=== PATIENT | male | born 1955 ===

== ENCOUNTER → 2018-04-19 | Outpatient (CLI) | payer OTHER ==
[~2018-04-19] VITALS: Ht 170.2 cm; Wt 77.1 kg
[~2018-04-19] MED LIST: ASPIR 8181 M1 PO; LIPITOR 20 MG T20 M1 PO
--- NOTE | ~2018-04-19 | PATH ---
[facility] [address] [place] [address] PATHOLOGY RPT PROCEDURE Name: REBEKAHMELANIE Room #: REG IVORY Soto.#: [id number] Admission: 04/19/18 Date of : 51 Discharge: Report #: [id number] Path Case #: [id number] [facility] Accession Number: [id number] . 01 Material submitted: . GASTRITIS R/O H PYLORI, BIOPSY . 01 Clinician provided ICD-10: n . 01 Clinical history: . Pre-OP DX: Non-cardiac chest pain Post-OP DX: Esophagitis, small hiatal hernia, gastritis . 02 Diagnosis: Gastric mucosa, gastritis, R/O H. pylori, endoscopic biopsy: - Helicobacter pylori induced moderate active gastritis associated with intestinal metaplasia. - Negative for atrophy or dysplasia. - Properly controlled Helicobacter pylori immunohistochemical stain performed showing moderate number of organisms. (IUV:stacia; 04/20/2018) QMS/04/20/2018 . 02 Electronically signed: . Keya Mendoza MD, Pathologist NPI- [id number] . 01 Gross description: . Received in formalin labeled "Rebekah, Melanie, gastritis, rule out H. pylori," are multiple segments of galdamez soft tissue measuring 1.0 x 0.5 x 0.1 cm in aggregate dimensions. The specimen is filtered and entirely submitted in cassette A1. (TSD; 04/19/2018) TOB/TOB . 02 Microscopic: . . . 02 Pathologist provided ICD-10: K29.70, B96.81 . 02 CPT . 029591, [id number] Specimen Comment: A courtesy copy of this report has been sent to Specimen Comment: [phone], . Specimen Comment: Report sent to and [address] [address] PATHOLOGY RPT PROCEDURE Name: CLAUDIA DALEYIS [place] [facility] [id number] Admission: 04/19/18 Date of : 51 Discharge: Report #: [id number] Path Case #: [id number] Performed at: 01 [facility] [address] [facility] [address], [place] [id number] MD Alex Ayala MD Phone: [phone] Performed at: [address], [place] [id number] MD Keya Mendoza MD Phone: [phone]
--- NOTE | ~2018-04-19 | P ---
[facility] [place] [address] PROCEDURE REPORT Name: MELANIE DALEY Room #: REG [facility]#: [id number] Admission: 04/19/18 Attend Phys: Jose Ruiz MD Discharge: Date of : 51 Report #: [id number] THIS REPORT FOR: //name// CC: FAM unknown Jose Antonio MD BRIEF HISTORY: The patient is a 63-year-old male who recently had a brief stay at [facility] due to atypical chest pain. Cardiovascular evaluation was negative per patient report. He is advised to seek GI evaluation. PREOPERATIVE DIAGNOSIS: Atypical chest pain. POSTOPERATIVE DIAGNOSES: 1. Grade A erosive esophagitis. 2. Small hiatus hernia, intermittently seen. 3. Erythematous gastritis. MEDICATIONS: Deep sedation with propofol per anesthesia. SPECIMEN: Biopsies of gastritis. ESTIMATED BLOOD LOSS: 3 mL. PROCEDURE: EGD with biopsy. FINDINGS: Prior to propofol sedation, procedure of upper endoscopy discussed with the patient as well as potential risks and its complications. He indicates he understands and desires to proceed. DESCRIPTION OF PROCEDURE: With the patient in left decubitus position, the Olympus videoendoscope was inserted in the cervical esophagus under direct vision without difficulty. Examination of this organ through its entire length revealed normal esophageal mucosa down the squamocolumnar junction. At the squamocolumnar junction, multiple erosions were seen consistent with grade A erosive esophagitis. No strictures or masses were seen. Ayon esophagus was not seen. Intermittently, a small sliding type hiatus hernia was seen. The mucosa in the hernia was normal. Scope was advanced into the stomach, which was examined on end view as well as retroflexed views. There is moderate erythema throughout the antrum and body of the stomach. No ulcers or erosions were seen. Biopsies were obtained to exclude H. pylori. Upon retroflexion, no mass lesions were seen. The pylorus, duodenal bulb and postbulbar duodenal sweep were all inspected and noted to be unremarkable. At that point, the scope was slowly withdrawn and careful circumferential views confirmed the above findings. The patient tolerated the procedure well. [facility] [address] [place] [address] PROCEDURE REPORT Name: MELANIE DALEY Room #: REG [facility].#: [id number] Admission: 04/19/18 Attend Phys: Jose Ruiz MD Discharge: Date of : 51 Report #: [id number] CONDITION OF THE PATIENT UPON DISCHARGE: Following the procedure, the patient drowsy. He will be discharged home when fully ambulatory. INSTRUCTIONS TO THE PATIENT AND FAMILY AT THE TIME OF DISCHARGE: He clearly has erosive changes in the distal esophagus consistent with grade A esophagitis. We will place him on omeprazole 40 mg daily for at least 6 weeks. Thereafter, he may try to reduce the lowest dose possible, but he may require regular administration on long-term basis. If he does not have good control of symptoms, he is to return to see me in followup in the office. By: [id number] Jose Ruiz MD /nt
== END | disposition home or self-care (01) ==
LOC: GI 08:20
DX: K21.0 Gastro-esophageal reflux disease with esophagitis (principal); K44.9 Diaphragmatic hernia without obstruction or gangrene; K29.70 Gastritis, unspecified, without bleeding; K25.9 Gastric ulcer, unspecified as acute or chronic, without hemorrhage or perforation; K31.89 Other diseases of stomach and duodenum; E78.5 Hyperlipidemia, unspecified; Z79.82 Long term (current) use of aspirin; Z79.899 Other long term (current) drug therapy
CPT/HCPCS: 62110; 62900